=== PATIENT | female | born 1945 | race Caucasian/White ===

== ENCOUNTER 2017-07-24 20:29 | Inpatient (IN) | payer MEDICARE, BC ==
[~2017-07-24] VITALS: Ht 162.6 cm; Wt 70.0 kg
[~2017-07-24 20:29] MED LIST: ALL220TA PO; CEFP250S PO; METO25 PO; OXYC1SOL6 PO; [UNRECOGNIZED DRUG - CODE] IM
[2017-07-24 20:44] VITALS: BP 175/93; PULSE 70; RESP 18; TEMP 98.1; O2SAT 98
[2017-07-24 20:48] VITALS: O2SAT 99
[2017-07-24] MEDS ORDERED: VITA100021 SL (20:50)
[2017-07-24] MEDS ORDERED: REBI44IN SQ (20:50)
[2017-07-24] MEDS ORDERED: ASPI81CH6 CHEW (20:50)
--- NOTE | 2017-07-24 21:33 | RADRPT ---
EXAM DATE/TIME: 07/24/2017 20:51 [facility] COMPARISON: No previous studies available for comparison. INDICATIONS : Syncope. MEDICAL HISTORY : None. SURGICAL HISTORY : None. ENCOUNTER: Initial ACUITY: 1 day PAIN SCORE: 0/10 LOCATION: Bilateral chest FINDINGS: The heart size is normal. There is minimal linear density at the lateral left base likely related to minimal atelectasis or scarring. Otherwise, the lungs are clear. No effusion is seen. CONCLUSION: Suspected minimal linear scarring or atelectasis at the left base. José Wright MD on July 24, 2017 at 21:30 Board Certified Radiologist. This report was verified electronically.
[2017-07-24 21:56] LABS: BASOPHIL # 0.2 TH/MM3 (0-0.2); BASOPHIL % 1.1 % (0.0-2.0); EOSINOPHIL % 0.2 % (0.0-4.0); HEMATOCRIT 42.9 % (35.0-46.0); HEMOGLOBIN 14.7 GM/DL (11.6-15.3); MEAN CELL VOLUME 89.9 FL (80.0-100.0); MEAN CORPUSCULAR HEMOGLOBIN 30.8 PG (27.0-34.0); MEAN CORPUSCULAR HGB CONC 34.3 % (32.0-36.0); MEAN PLATELET VOLUME 9.5 FL (7.0-11.0); MONO % 4.4 % (0.0-8.0); MONOCYTE # 0.6 TH/MM3 (0-0.9); NEUT % 65.3 % (16.0-70.0); PLATELET COUNT 401 TH/MM3 (150-450); RED BLOOD COUNT 4.78 MIL/MM3 (4.00-5.30); WHITE BLOOD COUNT 13.8 TH/MM3 (4.0-11.0)
[2017-07-24 22:24] LABS: AMORPHOUS SEDIMENT, URINE RARE; BACTERIA, URINE MANY /hpf; BILIRUBIN, URINE NEG (NEG); BLOOD, URINE NEG (NEG); GLUCOSE,URINE NEG (NEG); KETONE, URINE NEG (NEG); MUCUS URINE FEW /lpf (OCC); NITRITE,URINE POS (NEG); PH, URINE 5.5 (5.0-8.5); SQUAMOUS EPITHELIAL CELL URINE 3 /hpf (0-5); URINE COLOR YELLOW (YELLW/STRAW); URINE LEUKOCYTE ESTERASE MOD (NEG)
[2017-07-24 22:32] LABS: BICARBONATE 23.2 MEQ/L (21.0-32.0); CALCIUM 8.8 MG/DL (8.5-10.1); CREATININE 0.95 MG/DL (0.50-1.00)
[2017-07-24 22:33] LABS: TROPONIN I 0.07 NG/ML (0.02-0.05)
[2017-07-24 22:35] LABS: INTERNATIONAL NORMALIZED RATIO 0.9 RATIO; PROTHROMBIN TIME - PATIENT 9.5 SEC (9.8-11.6)
[2017-07-24 22:40] VITALS: BP 221/110
[2017-07-24] MEDS ORDERED: METOPROLOL TARTRATE 25 MG TAB PO ONE (22:45)
[2017-07-24] MEDS ORDERED: NITROGLYCERIN 2% OINT 1 GM PACKET TOPICAL ONE (22:45)
[2017-07-24] MEDS ORDERED: METOPROLOL TARTRATE 5 MG/5 ML VIAL IV PUSH ONE (22:45)
[2017-07-24] MEDS ORDERED: cefTRIAXone INJ 1,000 MG in SODIUM CHLORIDE 0.9% INJ 100 ML IV ONE (22:45)
[2017-07-24] MEDS ORDERED: ASPIRIN 81 MG CHEW TAB CHEW ONE (22:45)
[2017-07-24] MEDS ORDERED: ENOXAPARIN SODIUM 60 MG/0.6 ML SYRINGE SQ ONE (23:00)
--- NOTE | 2017-07-24 23:10 | PD ---
HPI Chief Complaint: Syncope/Near-Syncope Time Seen by Provider: 20:42 Travel History International Travel<30 days: No Contact w/Intl Traveler<30days: No Traveled to known affect area: No History of Present Illness HPI Patient is a 71-year-old female with multiple sclerosis she says that she was at a bili are all sitting outside in the sun when she passed out. She did not fall because she was sitting down. She did not hit her head she is unaware of why she was here she says. People at the pool hard[place] called the paramedics and she is transported by EMS in the ER she has no complaints afebrile nontoxic- appearing labs are sent she says she is supposed to be on anti-hypertensive medication but she does not notice and she doesn't take it anyway she is hypertensive in the ER EKG troponin sent urine is sent labs are sent to rule out organic causes of her syncopal episode. Possibly was a vasovagal from heat otherwise it could've been infectious or cardiac or neurologic . she his not seen another doctor for this and she denies any pain in her body PFSH Past Medical History Cancer: No Diabetes: No Glaucoma: No Hepatitis: No Hiatal Hernia: No Hypertension: Yes Medical other: Yes (MS) Thyroid Disease: No Tetanus Vaccination: Unknown Influenza Vaccination: No : 2 Para: 2 Past Surgical History Abdominal Surgery: No Cardiac Surgery: No Ear Surgery: No Endocrine Surgery: No Eye Surgery: No Genitourinary Surgery: No Gynecologic Surgery: Yes (HYSTERECTOMY) Hysterectomy: Yes Oral Surgery: No Pacemaker: No Thoracic Surgery: No Other Surgery: Yes Social History Alcohol Use: No Tobacco Use: Yes (1 PPD X 40 YEARS) Substance Use: No Allergies-Medications (Allergen,Severity, Reaction): Coded Allergies: No Known Allergies (Verified Allergy, Unknown, 07/25/17) Reported Meds & Prescriptions Reported Meds & Active Scripts Active Reported Vitamin B-12 (Cyanocobalamin) 1,000 Mcg Subl 1,000 Mcg SL DAILY Aspirin Low Dose (Aspirin) 81 Mg Chew 81 Mg CHEW DAILY Rebif Inj (Interferon Beta 1a) 44 Mcg/0.5 Ml Syr 44 Mcg SQ Review of Systems Except as stated in HPI: all other systems reviewed are Neg Physical Exam Narrative GENERAL: Nontoxic-appearing awake alert nondiaphoretic SKIN: Warm and dry. Not diaphoretic HEAD: Atraumatic. Normocephalic. EYES: Pupils equal and round. No scleral icterus. No injection or drainage. ENT: No nasal bleeding or discharge. Mucous membranes pink and moist. NECK: Trachea midline. No JVD. CARDIOVASCULAR: Regular rate and rhythm. RESPIRATORY: No accessory muscle use. Clear to auscultation. Breath sounds equal bilaterally. GASTROINTESTINAL: Abdomen soft, non-tender, nondistended. Hepatic and splenic margins not palpable. MUSCULOSKELETAL: Extremities without clubbing, cyanosis, or edema. No obvious deformities. NEUROLOGICAL: Awake and alert. No obvious cranial nerve deficits. Motor grossly within normal limits. PSYCHIATRIC: Appropriate mood and affect; insight and judgment normal. Data Data Last Documented VS Vital Signs Date Time Temp Pulse Resp B/P (MAP) Pulse Ox O2 Delivery O2 Flow Rate FiO2 07/24/17 22:40 221/110 (147) 07/24/17 20:48 99 Room Air 07/24/17 20:44 98.1 70 18 Orders Orders Electrocardiogram (07/24/17 20:45) Complete Blood Count With Diff (07/24/17 20:45) Basic Metabolic Panel (Bmp) (07/24/17 20:45) Ckmb (Isoenzyme) Profile (07/24/17 20:45) Troponin I (07/24/17 20:45) Chest, Single Ap (07/24/17 20:45) Iv Access Insert/Monitor (07/24/17 20:45) Ecg Monitoring (07/24/17 20:45) Oxygen Administration (07/24/17 20:45) Oximetry (07/24/17 20:45) Urinalysis - C+S If Indicated (07/24/17 20:45) Coag Profile (07/24/17 20:54) Urine Culture (07/24/17 21:35) Ceftriaxone Inj (Rocephin Inj) (07/24/17 22:45) Nitroglycerin 2% Oint (Nitroglycerin 2% (07/24/17 22:45) Aspirin Chew (Aspirin Chew) (07/24/17 22:45) Metoprolol Tartrate Inj (Lopressor Inj) (07/24/17 22:45) Metoprolol Tartrate (Lopressor) (07/24/17 22:45) Enoxaparin Inj (Lovenox Inj) (07/24/17 23:00) Admit Order (Ed Use Only) (07/24/17 23:16) Labs Laboratory Tests Test 07/24/17 20:45 07/24/17 21:03 07/24/17 21:30 07/24/17 21:35 Blood Urea Nitrogen 20 MG/DL Creatinine 0.95 MG/DL Random Glucose 87 MG/DL Calcium Level 8.8 MG/DL Sodium Level 139 MEQ/L Potassium Level 3.9 MEQ/L Chloride Level 108 MEQ/L Carbon Dioxide Level 23.2 MEQ/L Anion Gap 8 MEQ/L Estimat Glomerular Filtration Rate 58 ML/MIN Total Creatine Kinase 72 U/L Troponin I 0.07 NG/ML White Blood Count 13.8 TH/MM3 Red Blood Count 4.78 MIL/MM3 Hemoglobin 14.7 GM/DL Hematocrit 42.9 % Mean Corpuscular Volume 89.9 FL Mean Corpuscular Hemoglobin 30.8 PG Mean Corpuscular Hemoglobin Concent 34.3 % Red Cell Distribution Width 14.0 % Platelet Count 401 TH/MM3 Mean Platelet Volume 9.5 FL Neutrophils (%) (Auto) 65.3 % Lymphocytes (%) (Auto) 29.0 % Monocytes (%) (Auto) 4.4 % Eosinophils (%) (Auto) 0.2 % Basophils (%) (Auto) 1.1 % Neutrophils # (Auto) 9.0 TH/MM3 Lymphocytes # (Auto) 4.0 TH/MM3 Monocytes # (Auto) 0.6 TH/MM3 Eosinophils # (Auto) 0.0 TH/MM3 Basophils # (Auto) 0.2 TH/MM3 CBC Comment DIFF FINAL Differential Comment Prothrombin Time 9.5 SEC Prothromb Time International Ratio 0.9 RATIO Activated Partial Thromboplast Time 21.5 SEC Urine Color YELLOW Urine Turbidity HAZY Urine pH 5.5 Urine Specific [place] 1.017 Urine Protein TRACE mg/dL Urine Glucose (UA) NEG mg/dL Urine Ketones NEG mg/dL Urine Occult Blood NEG Urine Nitrite POS Urine Bilirubin NEG Urine Urobilinogen LESS THAN 2.0 MG/DL Urine Leukocyte Esterase MOD Urine RBC 2 /hpf Urine WBC 24 /hpf Urine Squamous Epithelial Cells 3 /hpf Urine Amorphous Sediment RARE Urine Bacteria MANY /hpf Urine Mucus FEW /lpf Microscopic Urinalysis Comment CULTURE INDICATED MDM Medical Decision Making Medical Screen Exam Complete: Yes Emergency Medical Condition: Yes Differential Diagnosis Syncope of heat exhaustion syncope and vasovagal syncope of UTI urosepsis syncope cardiogenic syncope neurologic other Narrative Course Patient has a UTI that could have caused her to have the vasovagal syncope she also has a troponin elevated at 0.07 possibly she had a ischemic cardiac event causing syncope patient will be admitted and treated for possible cardiac ischemia with serial troponins UTI will be covered with ceftriaxone I give 1 g IV in the ER and admit her to medical service Diagnosis Primary Impression: UTI (urinary tract infection) Qualified Codes: N30.00 - Acute cystitis without hematuria Additional Impressions: Elevated troponin Syncope Qualified Codes: R55 - Syncope and collapse Admitting Information Admitting Physician Requests: Admit Gene Perry MD Jul 24, 2017 23:10
[2017-07-24 23:36] VITALS: BP 189/97; PULSE 67; RESP 18; O2SAT 100
[2017-07-25] VITALS (9 sets, daily range): BP systolic 134–193; BP diastolic 61–94; PULSE 53–69; RESP 16–18; TEMP 97.8–98.3; O2SAT 95–99
[2017-07-25] MEDS ORDERED: SODIUM CHLOR 0.9% 1000 ML INJ 1,000 ML IV SCH (00:56)
[2017-07-25] MEDS ORDERED: NALOXONE HCL 0.4 MG/ML AMP IV PUSH PRN (01:00)
[2017-07-25] MEDS ORDERED: BISACODYL 10 MG SUPP RECTAL PRN (01:00)
[2017-07-25] MEDS ORDERED: SENNOSIDES 8.6 MG TAB PO PRN (01:00)
[2017-07-25] MEDS ORDERED: LACTULOSE SYRUP 20 GM/30 ML CUP PO PRN (01:00)
[2017-07-25] MEDS ORDERED: MAGNESIUM HYDROXIDE SUSP 30 ML CUP PO PRN (01:00)
[2017-07-25] MEDS ORDERED: ACETAMINOPHEN 325 MG TAB PO PRN (01:00)
[2017-07-25] MEDS ORDERED: SODIUM CHLORIDE 0.9% FLUSH 10 ML FLUSH IV FLUSH PRN (01:00)
[2017-07-25] MEDS ORDERED: ONDANSETRON HCL 4 MG/2 ML VIAL IVP PRN (01:00)
--- NOTE | 2017-07-25 01:17 | HHI.HP ---
HPI Service [facility] Primary Care Physician Rob Espinosa, DO Admission Diagnosis ischemia cardiac Diagnoses: Chief Complaint: Syncope Travel History International Travel<30 Days: No Contact w/Intl Traveler <30 Da: No History of Present Illness 71-year-old female with a history of hypertension , heart murmur as a child, and MS presented to the ED after having a syncopal episode. Patient states she was out of the words room playing cards when she walked outside to talk and have a cigarette and she had a syncopal episode. She states prior to the syncopal episode she denies any chest pain or shortness of breath, she is unsure why she had a loss of consciousness. She denies any change in medications, eating habits and states she felt pretty dehydrated. Upon examination she does not have any complaints, no chest pain or shortness of breath no fevers or chills. She was told she hit her head but she denies any headaches, double vision or blurry vision. She was found to have a UTI but states she is incontinent due to the MS, denies any dysuria. She states she does not follow up with a landman for her heart murmur she has not seen one in many years. Discussed possible cardiac catheter with patient and she is not sure whether she would proceed with one at this time. She does agree to talk with a landman. Review of Systems Except as stated in HPI: all other systems reviewed are Neg Past Family Social History Past Medical History MS Hypertension Heart murmur since a child Past Surgical History Hysterectomy Right tonsillectomy Reported Medications Reported Meds & Active Scripts Active Reported Vitamin B-12 (Cyanocobalamin) 1,000 Mcg Subl 1,000 Mcg SL DAILY Aspirin Low Dose (Aspirin) 81 Mg Chew 81 Mg CHEW DAILY Rebif Inj (Interferon Beta 1a) 44 Mcg/0.5 Ml Syr 44 Mcg SQ Allergies: Coded Allergies: No Known Allergies (Verified Allergy, Unknown, 07/25/17) Family History Dad: Colon cancer Mom: Heart disease, pacemaker Sister: Breast cancer, another sister pancreatic cancer Social History Tobacco use: 1 PPD Alcohol use: Denies Physical Exam Vital Signs Vital Signs Date Time Temp Pulse Resp B/P (MAP) Pulse Ox O2 Delivery O2 Flow Rate FiO2 07/24/17 23:36 67 18 189/97 (127) 100 Room Air 07/24/17 22:40 221/110 (147) 07/24/17 20:48 99 Room Air 07/24/17 20:48 99 Room Air 07/24/17 20:44 98.1 70 18 175/93 (120) 98 Room Air Physical Exam GENERAL: This is a well-nourished, well-developed patient, in no apparent distress. SKIN: No rashes, ecchymoses or lesions. Cool and dry. HEAD: Atraumatic. Normocephalic. EYES: Pupils equal round and reactive. Extraocular motions intact ENT: Nose without bleeding, purulent drainage or septal hematoma.Airway patent. NECK: Trachea midline. No JVD or lymphadenopathy. CARDIOVASCULAR: Regular rate and rhythm without murmurs, gallops, or rubs. RESPIRATORY: Clear to auscultation. Breath sounds equal bilaterally. No wheezes , rales, or rhonchi. GASTROINTESTINAL: Abdomen soft, non-tender, nondistended. MUSCULOSKELETAL: Extremities without clubbing, cyanosis, or edema. NEUROLOGICAL: Awake and alert. Motor and sensory grossly within normal limits. Five out of 5 muscle strength in all muscle groups. Normal speech. Laboratory Laboratory Tests Test 07/24/17 20:45 07/24/17 21:03 07/24/17 21:30 07/24/17 21:35 Blood Urea Nitrogen 20 Creatinine 0.95 Random Glucose 87 Calcium Level 8.8 Sodium Level 139 Potassium Level 3.9 Chloride Level 108 Carbon Dioxide Level 23.2 Anion Gap 8 Estimat Glomerular Filtration Rate 58 Total Creatine Kinase 72 Troponin I 0.07 White Blood Count 13.8 Red Blood Count 4.78 Hemoglobin 14.7 Hematocrit 42.9 Mean Corpuscular Volume 89.9 Mean Corpuscular Hemoglobin 30.8 Mean Corpuscular Hemoglobin Concent 34.3 Red Cell Distribution Width 14.0 Platelet Count 401 Mean Platelet Volume 9.5 Neutrophils (%) (Auto) 65.3 Lymphocytes (%) (Auto) 29.0 Monocytes (%) (Auto) 4.4 Eosinophils (%) (Auto) 0.2 Basophils (%) (Auto) 1.1 Neutrophils # (Auto) 9.0 Lymphocytes # (Auto) 4.0 Monocytes # (Auto) 0.6 Eosinophils # (Auto) 0.0 Basophils # (Auto) 0.2 CBC Comment DIFF FINAL Differential Comment Prothrombin Time 9.5 Prothromb Time International Ratio 0.9 Activated Partial Thromboplast Time 21.5 Urine Color YELLOW Urine Turbidity HAZY Urine pH 5.5 Urine Specific [place] 1.017 Urine Protein TRACE Urine Glucose (UA) NEG Urine Ketones NEG Urine Occult Blood NEG Urine Nitrite POS Urine Bilirubin NEG Urine Urobilinogen LESS THAN 2.0 Urine Leukocyte Esterase MOD Urine RBC 2 Urine WBC 24 Urine Squamous Epithelial Cells 3 Urine Amorphous Sediment RARE Urine Bacteria MANY Urine Mucus FEW Microscopic Urinalysis Comment CULTURE INDICATED Test 07/24/17 23:30 Troponin I 0.05 Date/Time Source Procedure Growth Status 07/24/17 21:35 Urine Clean Catch Urine Culture Pending Received Result Diagram: 07/24/[id number]/24/172044 Imaging Last Impressions Chest X-Ray 07/24/172044 Signed Impressions: Service Date/Time: Monday, July 24, 2017 20:51 - CONCLUSION: Suspected minimal linear scarring or atelectasis at the left base. José Wright MD [place] VTE Risk Assessment Caprini VTE Risk Assessment: No/Low Risk (score <= 1) Caprini Risk Assessment Model Point Value = 1 Point Value = 2 Point Value = 3 Point Value = 5 Age 41-60 Minor surgery BMI > 25 kg/m2 Swollen legs Varicose veins or History of unexplained or recurrent spontaneous Oral contraceptives or hormone replacement Sepsis (< 1 month) Serious lung disease, including pneumonia (< 1 month) Abnormal pulmonary function Acute myocardial infarction Congestive heart failure (< 1 month) History of inflammatory bowel disease Medical patient at bed rest Age 61-74 Arthroscopic surgery Major open surgery (> 45 min) Laparoscopic surgery (> 45 min) Malignancy Confined to bed (> 72 hours) Immobilizing plaster cast Central venous access Age >= 75 History of VTE Family history of VTE Factor V Leiden Prothrombin [id number] Lupus anticoagulant Anticardiolipin antibodies Elevated serum homocysteine Heparin-induced thrombocytopenia Other congenital or acquired thrombophilia Stroke (< 1 month) Elective arthroplasty Hip, pelvis, or leg fracture Acute spinal cord injury (< 1 month) Prophylaxis Regimen Total Risk Factor Score Risk Level Prophylaxis Regimen 0-1 Low Early ambulation 2 Moderate Order ONE of the following: *Sequential Compression Device (SCD) *Heparin 5000 units SQ BID 3-4 Higher Order ONE of the following medications: *Heparin 5000 units SQ TID *Enoxaparin/Lovenox 40 mg SQ daily (WT < 150 kg, CrCl > 30 mL/min) *Enoxaparin/Lovenox 30 mg SQ daily (WT < 150 kg, CrCl > 10-29 mL/min) *Enoxaparin/Lovenox 30 mg SQ BID (WT < 150 kg, CrCl > 30 mL/min) AND/OR *Sequential Compression Device (SCD) 5 or more Highest Order ONE of the following medications: *Heparin 5000 units SQ TID (Preferred with Epidurals) *Enoxaparin/Lovenox 40 mg SQ daily (WT < 150 kg, CrCl > 30 mL/min) *Enoxaparin/Lovenox 30 mg SQ daily (WT < 150 kg, CrCl > 10-29 mL/min) *Enoxaparin/Lovenox 30 mg SQ BID (WT < 150 kg, CrCl > 30 mL/min) AND *Sequential Compression Device (SCD) Assessment and Plan Problem List: (1) Syncope ICD Code: R55 - Syncope and collapse (2) Elevated troponin ICD Code: R74.8 - Abnormal levels of other serum enzymes (3) UTI (urinary tract infection) ICD Code: N39.0 - Urinary tract infection, site not specified Assessment and Plan 71-year-old female with a history of hypertension , heart murmur as a child, and MS presented to the ED after having a syncopal episode. Syncope, acute -2-D echo, ultrasound carotids ordered -Consult neurology for recommendations -Orthostatic BP ordered Elevated troponin, rule out ACS Troponin 0.07 -Serial troponin and EKGs -Consult cardiology for recommendations -Patient was given therapeutic Lovenox, will consider heparin drip 12 hours post Lovenox dose if patient develops chest pain or a rise in cardiac enzymes -Nitroglycerin when necessary UTI, suspect Escherichia coli UA shows a moderate leukocyte esterase with nitrates and bacteria -Rocephin IV daily -Urine culture pending Hypertension, chronic, currently elevated -Awaiting update for home medications -Vasotec when necessary -Monitor vitals Tobacco abuse, chronic -Encouraged to quit DVT prophylaxis: SCDs, Lovenox Discussed Condition With Patient , RN and ED physician Physician Certification 2 Midnight Certification Type: Admission for Inpatient Services Order for Inpatient Services The services are ordered in accordance with Medicare regulations or non- Medicare payer requirements, as applicable. In the case of services not specified as inpatient-only, they are appropriately provided as inpatient services in accordance with the 2-midnight benchmark. Estimated LOS (days): 2 days is the estimated time the patient will need to remain in the hospital, assuming treatment plan goals are met and no additional complications. Post-Hospital Plan: Home Raisa Salinas Jul 25, 2017 01:17
[2017-07-25] MEDS: ENALAPRILAT 1.25 MG/ML VIAL IV PUSH PRN ×2 (01:35→17:58)
[2017-07-25] MEDS ORDERED: [UNRECOGNIZED DRUG - OTHER] (05:17)
[2017-07-25] MEDS ORDERED: DOCUSATE SODIUM 50 MG/SENNA 8.6 MG TAB PO SCH (09:00)
[2017-07-25] MEDS ORDERED: ASPIRIN 81 MG CHEW TAB CHEW SCH (09:00)
[2017-07-25] MEDS ORDERED: CYANOCOBALAMIN 1,000 MCG TAB PO SCH (09:00)
[2017-07-25] MEDS ORDERED: SODIUM CHLORIDE 0.9% FLUSH 10 ML FLUSH IV FLUSH SCH (09:00)
--- NOTE | 2017-07-25 10:10 | MB ---
cc: Johann Knight MD DATE: 07/25/2017 HISTORY OF PRESENT ILLNESS: A 71-year-old right-handed woman with a history of hypertension, MS from optic neuritis, sees Dr. Gonzales, on Rebif, been stable without MS symptoms recently. She tells me she has passed out about 20 times over the course of her life, never sitting down before. Oftentimes if she gets nervous about something she might pass out like before she might get her tooth pulled, sometimes after if she gets blood drawn. Yesterday, she was sitting on the sidewalk outside a pool hardin where she had been playing cards. She is not a drinker. She does smoke. Without warning, she passed out, she thinks for about 10 minutes. No chest pain, palpitations or headache with that, no warning, no incontinence or tongue biting. She was not confused when she woke up. REVIEW OF SYSTEMS: She denies any history of diabetes, hypercholesterolemia, PR, CABG, stent, angioplasty, atrial fibrillation, Coumadin, chest pain, palpitations, renal, hepatic or pulmonary disease, thyroid disease, lupus, ulcer, cancer, seizure, stroke. SOCIAL HISTORY: She is a smoker, not a drinker. No drugs. Lives by herself. FAMILY HISTORY: Positive for cancer. Negative for seizure, stroke. ALLERGIES: NO KNOWN DRUG ALLERGIES. MEDICATIONS: She takes vitamin B12, aspirin 81, Rebif 44 mcg subQ. PHYSICAL EXAMINATION: VITAL SIGNS: Afebrile, 61, 17. She was in sinus rhythm. Highest blood pressure initially 221/110, it has come down to 168/79. NECK: There were no carotid bruits. HEART: Regular rhythm. I do not detect a murmur. NEURO: Pupils are equal. Visual cruz are full. Extraocular movements intact without nystagmus. Face is symmetric with normal sensation. Tongue was midline. There is no drift. Normal strength in upper and lower extremities bilaterally. DTRs were 2+ and symmetric throughout, except left knee jerk might be slightly hyperreflexive compared to the right. Toes are downgoing bilaterally. No ankle clonus. Pinprick is intact throughout. Speech is fluent. She is not aphasic. No apparent distress. Gives a good history. LABORATORY DATA: CBC shows a white count of 13.8. She had an LP back in 2005, which did show some oligoclonal bands, otherwise normal. CSF otherwise normal. VDRL negative. Basic metabolic profile, calcium, CPK normal. Troponin 0.07. Bilirubin normal. Coags normal. UA showed 24 white cells, moderate leukocyte esterase. She had a chest x-ray which showed some atelectasis on the left. ASSESSMENT AND PLAN: 1. Syncopal episode. It does not sound really neurological. I am going to have her see cardiology. We will check an MRI of the brain, carotid ultrasound, echo, Holter, some standing blood pressure, though she was sitting at the time. Check an EEG. The MS seems to be doing well. Check some additional blood work. She has actually had many syncopal spells over the course of her life. At this point, she should hold off driving until further notice. Also, check a standing blood pressure on her. Of interest, her blood pressure was very high when she came in. I think a seizure or stroke is probably unlikely. We will also check an MRA to make sure there is no vertebrobasilar stenosis. ____ she could have a neurocardiogenic syncope is possible. Johann Knight MD DJM/TL/ , 09:17 AM , 09:51 AM
[2017-07-25] MEDS ORDERED: ENOXAPARIN SODIUM 60 MG/0.6 ML SYRINGE SQ SCH (11:00)
--- NOTE | 2017-07-25 11:13 | RADRPT ---
EXAM DATE/TIME: 07/25/2017 09:55 [facility] COMPARISON: No previous studies available for comparison. INDICATIONS : Syncope. MEDICAL HISTORY : Dizziness. Syncope. Depression. Irregular heartbeat. SURGICAL HISTORY : Tonsillectomy. Hysterectomy. ENCOUNTER: Initial ACUITY: 1 day PAIN SCORE: 1/10 LOCATION: Bilateral neck PEAK SYSTOLIC VELOCITIES (cm/sec): ICA/CCA RATIO: Right: 1.6 Left: 1.2 ICA: Right: 107 Left: 105 CCA: Right: 65 Left: 91 ECA: Right: 83 Left: 128 VERTEBRAL: Right: 27 retrograde Left: 43 antegrade Elevated flow velocities and ICA/CCA ratios have been found to correlate with increased degrees of vessel stenosis, calculated as percentage of diameter relative to a normal segment of distal ICA/CCA FINDINGS: RIGHT CAROTID: Mild plaquing at the carotid bifurcation. No significant stenosis is visualized. The waveforms are w ithin normal limits. LEFT CAROTID: Mild plaquing at the carotid bifurcation. No significant stenosis is visualized. The waveforms are w ithin normal limits. VERTEBRAL ARTERIES: Retrograde flow in the right vertebral artery. Antegrade flow in the left vertebral artery. MISCELLANEOUS: None. CONCLUSION: 1. Mild atherosclerotic plaquing bilaterally. 2. No focal high grade or hemodynamically significant stenosis. 3. Retrograde flow in the right portable artery. Tj Husain MD on July 25, 2017 at 11:09 Board Certified Radiologist. This report was verified electronically.
--- NOTE | 2017-07-25 11:52 | HHI.PR ---
Addendum to Inpatient Note Addendum Reason: Additional Documentation Additional Information Patient was seen today, appears to be fully oriented and asymptomatic. Denies any chest pain shortness of breath. Denies any headache nausea or vomiting. Is very hungry. Denies having any lightheadedness going to the restroom. As IV fluids running. Says she only drinks about a cup of water a day at most. Really wants to go home. I explained to her that there was a few more tests ordered and that she can speak to the door closer and the neurologist to see if they were fine with her going home. I suspect she had overall syncope secondary to dehydration. May be a reasonable candidate to go home with a Holter monitor today. Addendum: Discussed case with both neurology and cardiology. Per neurology patient can go home once evaluated by cardiology and cleared with time. Discussed results with cardiology including unremarkable carotid ultrasounds and MRI and MRA. Cardiology will perform outpatient stress test in 3 days, clear for discharge from their standpoint. EEG results can be followed up as an outpatient. Patient was instructed to not drive or operate any heavy machinery until cleared by neurology as an outpatient. Mo Zamarripa MD Jul 25, 2017 11:52
[2017-07-25 12:21] LABS: AUTOMATED NEUTROPHIL # 5.8 TH/MM3 (1.8-7.7); BASOPHIL # 0.1 TH/MM3 (0-0.2); BASOPHIL % 0.7 % (0.0-2.0); EOSINOPHIL # 0.1 TH/MM3 (0-0.4); EOSINOPHIL % 0.7 % (0.0-4.0); HEMOGLOBIN 12.7 GM/DL (11.6-15.3); LYMPH % 40.3 % (9.0-44.0); LYMPHOCYTE # 4.6 TH/MM3 (1.0-4.8); MEAN CELL VOLUME 90.1 FL (80.0-100.0); MEAN CORPUSCULAR HEMOGLOBIN 30.2 PG (27.0-34.0); MEAN CORPUSCULAR HGB CONC 33.5 % (32.0-36.0); MONOCYTE # 0.8 TH/MM3 (0-0.9); NEUT % 51.3 % (16.0-70.0); PLATELET COUNT 373 TH/MM3 (150-450); RED BLOOD COUNT 4.22 MIL/MM3 (4.00-5.30); RED CELL DISTRIBUTION WIDTH 13.9 % (11.6-17.2); WHITE BLOOD COUNT 11.3 TH/MM3 (4.0-11.0)
[2017-07-25 12:45] LABS: AST (GOT) 9 U/L (15-37); C-REACTIVE PROTEIN 1.07 MG/DL (0.00-0.30)
[2017-07-25 13:10] LABS: ALT (GPT) 12 U/L (10-53); FREE T4 1.14 NG/DL (0.76-1.46)
--- NOTE | 2017-07-25 13:57 | RADRPT ---
EXAM DATE/TIME: 07/25/2017 12:15 [facility] COMPARISON: No previous studies available for comparison. INDICATIONS : CVA. Syncope. CONTRAST: 20 cc Omniscan (gadodiamide) IV MEDICAL HISTORY : Hypertension. Multiple sclerosis. SURGICAL HISTORY : Hysterectomy. Tonsillectomy. ENCOUNTER: Initial ACUITY: 1 day PAIN SCORE: 0/10 LOCATION: head. TECHNIQUE: Multiplanar, multisequence MRI of the brain was performed both prior to and following the administrat ion of paramagnetic contrast. FINDINGS: CEREBRUM: The ventricles are normal for age. There is bilateral cortical atrophy. No evidence of midline shift , mass lesion, hemorrhage or acute infarction. No extraaxial fluid collections are seen. The pituit martha gland and suprasellar cistern are normal in configuration. WHITE MATTER: White matter changes bilaterally characteristic of ischemic demyelinization. POSTERIOR FOSSA: The cerebellum and brainstem are intact. 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 The 4th ventricle is midline. The cerebellopontine angle is unremarkable. The cerebellar tonsils are normal in position. DIFFUSION IMAGING: No focal areas of restricted diffusion are seen. No evidence of acute infarction. EXTRACRANIAL: The visualized portions of the orbits and paranasal sinuses are unremarkable. POST-CONTRAST: No abnormal areas of parenchymal or dural enhancement. No evidence of blood-brain barrier breakdown. CONCLUSION: 1. Bilateral cortical atrophy and chronic white matter changes. 2. No acute intracranial pathology. Tj Husain MD on July 25, 2017 at 13:54 Board Certified Radiologist. This report was verified electronically.
--- NOTE | 2017-07-25 14:00 | RADRPT ---
EXAM DATE/TIME: 07/25/2017 12:15 [facility] COMPARISON: MRI BRAIN W & W/O CONTRAST, July 25, 2017, 12:15. INDICATIONS : Stroke. Syncope. MEDICAL HISTORY : Multiple sclerosis. Hypertension. SURGICAL HISTORY : Hysterectomy. Tonsillectomy. ENCOUNTER: Initial ACUITY: 1 day PAIN SCORE: 0/10 LOCATION: cranial Please note a normal MRA of the brain does not entirely exclude the possibility of a small aneurysm, nor the possibility of distal intracranial vessel disease. TECHNIQUE: 3D time of flight MRA was performed. Source images, multiplanar STS MIP, and 3D volume MIP reconstru ctions were reviewed. FINDINGS: There is excellent visualization of the major intracranial arteries out to the second-order branch ve ssels. The anterior circulation is unremarkable. Luminal surfaces are smooth. There is no evidence of signif icant stenosis. There is no evidence of aneurysm, vascular malformation or vascular displacement. origin of the posterior cerebral arteries are noted. The as the artery is small. Left vertebral artery is dominant. There are no significant stenotic or occlusive changes. CONCLUSION: 1. 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 No evidence of vasculopathy, stenosis, aneurysm or vascular malformation. 3. Dominant left vertebral artery. Donal Huerta MD on July 25, 2017 at 13:55 Board Certified Radiologist. This report was verified electronically.
--- NOTE | 2017-07-25 14:01 | RADRPT ---
EXAM DATE/TIME: 07/25/2017 12:15 [facility] COMPARISON: No previous studies available for comparison. INDICATIONS : Stroke. Syncope. CONTRAST: 20 cc Omniscan (gadodiamide) IV MEDICAL HISTORY : Hypertension. Multiple sclerosis. SURGICAL HISTORY : Tonsillectomy. Hysterectomy. ENCOUNTER: Initial ACUITY: 1 day PAIN SCORE: 0/10 LOCATION: Head. Percent stenosis is calculated using the diameter of the stenotic region over the diameter of the nor mal distal internal carotid artery. TECHNIQUE: Bolus infused MRA of the extracranial circulation was performed using a neurovascular coil. Post pro cessing was performed including rotating subvolume maximum intensity projections of each carotid macey ry, rotating full volume maximum intensity projections of both carotid arteries, sagittal and coronal sliding thin slab reformations of each carotid artery, and left oblique sliding thin slab reformatio n through the aortic arch to include the origin of the arch branch vessels. FINDINGS: AORTIC ARCH: There is a three vessel origin of the great vessels from the aorta. No evidence of ostial narrowing. RIGHT CAROTID: The common carotid artery is intact. The carotid bulb has a normal configuration without ulceration or narrowing. The internal carotid artery lumen is smooth without stenosis. The external carotid ar debbi is intact. LEFT CAROTID: The common carotid artery is intact. The carotid bulb has a normal configuration without ulceration or narrowing. The internal carotid artery lumen is smooth without stenosis. The external carotid ar debbi is intact. VERTEBRALS: The vertebral arteries are asymmetric in size with the left vertebral artery being dominant.. No christie notic lesions are seen. CONCLUSION: 1. No evidence of hemodynamically significant stenosis or significant atherosclerotic vascular diseas e. 2. Dominant left vertebral artery. Donal Huerta MD on July 25, 2017 at 13:58 Board Certified Radiologist. This report was verified electronically.
--- NOTE | 2017-07-25 14:09 | ECHRPT ---
Indication: syncope CONCLUSIONS Normal left ventricular size and wall thickness. The left ventricular systolic function is normal wi th an estimated ejection fraction in the range of 60-65%. Normal wall motion. Trace mitral valve regurgitation. There is mild tricuspid valve regurgitation with normal pulmonary pressures. BP: / HR: Rhythm: Technical Quality: FINDINGS LEFT VENTRICLE Normal left ventricular size and wall thickness. The left ventricular systolic function is normal wi th an estimated ejection fraction in the range of 60-65%. Normal wall motion. RIGHT VENTRICLE Normal right ventricular size and systolic function. LEFT ATRIUM The left atrial size is normal. RIGHT ATRIUM The right atrial size is normal. ATRIAL SEPTUM Normal atrial septal thickness without atrial level shunting by limited color doppler interrogation. AORTA The aortic root and proximal ascending aorta are normal in size on limited imaging. MITRAL VALVE Trace mitral valve regurgitation. AORTIC VALVE Trileaflet aortic valve. No aortic valve stenosis or regurgitation. TRICUSPID VALVE There is mild tricuspid valve regurgitation with normal pulmonary pressures. PULMONARY VALVE The pulmonary valve is not well visualized. VESSELS The inferior vena cava is normal in size. PERICARDIUM No pericardial effusion. Sotero Nelson MD (Electronically Signed) Final Date:25 July 2017 14:08
[2017-07-25] MEDS ORDERED: GADODIAMIDE PF 287 MG/ML 20 ML VIAL (for RAD MRI) IVCONTRAST ONE (14:17)
--- NOTE | 2017-07-25 14:44 | EKG ---
Date Performed: 07/24/2017 Time Performed: 20:42:27 PTAGE: 71 years EKG: Sinus rhythm POSSIBLE LEFT ATRIAL ENLARGEMENT POSSIBLE RIGHT VENTRICULAR CONDUCTION DELAY LEFT VENTRICULAR HYPERT ROPHY AND ST-T CHANGE ABNORMAL ECG Compared to PREVIOUS TRACING LVH and repolarization changes are new PREVIOUS TRACIN06/18/2008 12. 51 DOCTOR: Kaushik Flanagan Interpretating Date/Time 07/25/2017 14:42:52
--- NOTE | 2017-07-25 14:44 | EKG ---
Date Performed: 07/24/2017 Time Performed: 23:20:50 PTAGE: 71 years EKG: NORMAL Sinus rhythm Left atrial abnormality LVH with repolarization changes Since previous tracing, no significant barrow e noted BORDERLINE ECG PREVIOUS TRACING : 07/24/2017 20.42 DOCTOR: Kaushik Flanagan Interpretating Date/Time 07/25/2017 14:44:21
--- NOTE | 2017-07-25 14:46 | EKG ---
Date Performed: 07/25/2017 Time Performed: 02:35:47 PTAGE: 71 years EKG: SINUS BRADYCARDIA Left atrial abnormality LVH with repolarization abnormality The repolariz ation abnormality is slightly more prominent, cannot exclude ischemia ABNORMAL ECG PREVIOUS TRACING : 07/24/17 DOCTOR: Kaushik Flanagan Interpretating Date/Time 07/25/2017 14:45:59
--- NOTE | 2017-07-25 17:01 | MG ---
cc: Major Avery MD, PhD ELECTROENCEPHALOGRAM TEST NUMBER: [id number]. TECHNIQUE: 17-channel EEG. DESCRIPTION: The background rhythm reveals symmetrical alpha rhythm, frequency 8-10 Hz. Amplitude is 20-30 microvolts. There are no lateralizing features seen. There are no epileptiform discharges. Photic results in a normal driving response. INTERPRETATION: Normal electroencephalogram. Major Avery MD, PhD PILO/TOMMY , 04:50 PM , 05:00 PM
--- NOTE | 2017-07-25 17:02 | HHI.DCPOC ---
Discharge Care Plan Diagnosis: (1) Syncope Goals to Promote Your Health * To prevent worsening of your condition and complications * To maintain your health at the optimal level Directions to Meet Your Goals Take your medications as prescribed Follow your dietary instruction Follow activity as directed Keep your appointments as scheduled Take your immunizations and boosters as scheduled If your symptoms worsen call your PCP, if no PCP go to Urgent Care Center or Emergency Room Smoking is Dangerous to Your Health. Avoid second hand smoke Call the 24-hour hour crisis hotline for domestic abuse at Mo Zamarripa MD Jul 25, 2017 17:02
[2017-07-25] MEDS ORDERED: cloNIDine HCL 0.1 MG TAB PO ONE (18:45)
[2017-07-25] MEDS ORDERED: ENALAPRILAT 1.25 MG/ML VIAL IV PUSH ONE (20:00)
[2017-07-25] MEDS ORDERED: cefTRIAXone INJ 1,000 MG in SODIUM CHLORIDE 0.9% INJ 100 ML IV SCH (23:00)
--- NOTE | 2017-07-26 08:10 | MB ---
cc: Matt Crowe MD DATE: 07/25/2017 HISTORY OF PRESENT ILLNESS: Devora is a very pleasant 71-year-old lady with history of multiple sclerosis and tobacco use. She states she had an episode of loss of consciousness with no prodrome. She denies any chest pain, shortness of breath, fever, chills, cough, bleeding, PND, orthopnea. According to the ER note, she was in the sun while sitting and "passed out." There was no head injuries. The patient was already seated. She is noted to be noncompliant with blood pressure medications in the ER. PAST MEDICAL HISTORY: As per history of present illness. She has a history of hysterectomy. SOCIAL HISTORY: Denies alcohol use. She smokes a pack of cigarettes a day for the last 40 years. ALLERGIES: NONE. MEDICATIONS AT HOME: Aspirin 81 mg a day, interferon beta 1A, vitamin B12. MEDICATIONS IN THE HOSPITAL: Clonidine 0.1 mg x 1, ceftriaxone IV every .24 hours, Lovenox 60 subcutaneous every 12 hours, aspirin 81 mg a day. PHYSICAL EXAMINATION: VITAL SIGNS: Blood pressure 173/83, pulse 54, respiratory rate 18, temperature 97.8. GENERAL: She is alert and oriented x 3, in no acute distress. NECK: Supple. No JVD. No bruit. CARDIOVASCULAR: S1, S2. No murmurs, rubs or gallops. PULMONARY: Lungs clear to auscultation bilaterally. ABDOMEN: Soft, nontender, nondistended, with positive bowel sounds. EXTREMITIES: No extremity edema. LABORATORY DATA: White count 139, potassium 3.9, chloride 108, bicarbonate 23.2, BUN 20, creatinine 0.95. Troponin 0.07, 0.05 and 0.07. C-reactive protein 1.07. TSH is 6.390. INR 0.9. ECHOCARDIOGRAM: Normal sinus rhythm at 69 beats per minute. Anteroseptal Q-waves which are nondiagnostic and nonspecific. ST-T wave changes. Repeat EKG, normal sinus rhythm, 59 beats per minute, T-wave inversion in V4, V5, V6, lead II, III, AVF. EKG, normal sinus rhythm at 66 beats per minute, LVH with strain versus anterolateral ischemia, anteroseptal Q-waves. Corrected QT interval is 416 milliseconds. ECHOCARDIOGRAM: EF 60-65%, trace MR. Normal wall thickness and normal LV size. ELECTROENCEPHALOGRAM: Normal electroencephalogram. IMAGING: Chest x-ray, suspected minimal linear scarring or atelectasis of the left base. Carotid ultrasound, mild atherosclerotic plaquing bilaterally. Neck MRA. No evidence of hemodynamically significant stenosis or significant atherosclerotic vascular disease. Dominant left vertebral artery. 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 No evidence of vasculopathy, stenosis, aneurysm or vascular malformation. Dominant left vertebral artery. A brain MRI, bilateral cortical atrophy and chronic white matter changes. SHE HAS THE FOLLOWING DIAGNOSES: 1. [id number] myocardial infarction. 2. Syncope. 3. Hypertension. 4. Medical noncompliance. 5. Bradycardia. 6. Tobacco use. 7. Multiple sclerosis. 8. Left ventricular hypertrophy. ASSESSMENT: The patient has been seen by Dr. Hernandez, who assessed the syncope is probably not neurologic in origin. Due to the elevated troponin and risk factors of tobacco use, uncontrolled blood pressure and EKG changes, I have advised the patient to have a left heart catheterization. She adamantly refuses. She is otherwise asymptomatic. I think her bradycardia was induced by the clonidine, as she did not have this on presentation. Thyroid is normal. I do think from a cardiovascular standpoint, it is reasonable to let her go home and instructed her and Dr. Zamarripa to have her see me in the office immediately on 07/29/2017. Strongly recommend smoking cessation. Recommend compliance with blood pressure medications. MD KELY Singer/SHAWN , 06:50 PM , 07:25 PM
[2017-07-26 14:30] LABS: ANA SCREEN NEG (NEG)
[2017-07-29 05:48] LABS: METHYLMALONIC ACID 0.12 nmol/mL (<=0.40)
== END 2017-07-25 19:59 | disposition left against medical advice (07) | DRG 312 ==
LOC: NEPE 20:29 → NEDA 23:24 → NEDH 07-25 03:48 → N07A 07-25 04:30
PROVIDERS: ADMIT Hospitalist; ATTEND Hospitalist
DX: R55 Syncope and collapse (principal); G35 Multiple sclerosis; N39.0 Urinary tract infection, site not specified; I10 Essential (primary) hypertension; R00.1 Bradycardia, unspecified; R74.8 Abnormal levels of other serum enzymes; Z91.14 Patient's other noncompliance with medication regimen; F17.210 Nicotine dependence, cigarettes, uncomplicated; Z79.82 Long term (current) use of aspirin
CPT/HCPCS: 70544; 70548; 70553; 71045; 80048; 81001; 82550; 82607; 83921; 84425; 84439; 84443; 84450; 84460; 84484; 85025; 85610; 85652; 85730; 86038; 86140; 86592; 87077; 87086; 87186; 93005; 93306; 93880; 95819; 96365; 96375; A9579; J0696; J1650; J7030

== ENCOUNTER 2017-08-15 14:13 | Day surgery (SDC) | payer MEDICARE, BC ==
[~2017-08-15 14:13] MED LIST changes: -ALL220TA PO; +ASPI81CH6 CHEW; -CEFP250S PO; -METO25 PO; -OXYC1SOL6 PO; +REBI44IN SQ; +VITA100021 SL; -[UNRECOGNIZED DRUG - CODE] IM; +[UNRECOGNIZED DRUG - OTHER]
[2017-08-15] MEDS ORDERED: MUPIROCIN 2% OINT 1 APPLIC/GM SYR NASAL SCH (14:45)
[2017-08-15] MEDS ORDERED: CHLORHEXIDINE GLUCONATE 2 % 1 PACK (2 CLOTHS) TOPICAL SCH (14:45)
[2017-08-15] MEDS ORDERED: Hold AM Insulin & AM Hypoglycemic medications in diabetic patients PRN (14:45)
[2017-08-15] MEDS ORDERED: ceFAZolin 2 GM PREMIX 50 ML IV SCH (14:45)
[2017-08-15] MEDS ORDERED: NO Heparin, Lovenox, Coumadin at least 12 hours prior to procedure. PRN (14:45)
[2017-08-15] MEDS ORDERED: POVIDONE IODINE 5% (ANTISEPSIS KIT) 4 APPLICATIONS EACH NARE SCH (14:45)
[2017-08-15] MEDS ORDERED: NS 1000 ML IV SCH (14:45)
[2017-08-15] MEDS ORDERED: AMLO2.5T PO (14:58)
[2017-08-15] MEDS ORDERED: LIDOCAINE HCL 1% PF 30 ML VIAL ONE (16:08)
--- NOTE | 2017-08-15 16:55 | MA ---
cc: Russell Tierney MD DATE: 08/15/2017 DATE OF PROCEDURE: 08/15/2017 PROCEDURE PERFORMED: Loop recorder insertion. INDICATION FOR PROCEDURE: Syncope. DESCRIPTION OF PROCEDURE: The patient was brought to the DOC Unit in the postabsorptive state. After informed consent was obtained, a [employer] LINQ loop recorder was inserted subcutaneously to the left chest. The patient tolerated the procedure well without any apparent complications. Tachybrady pause and atrial fibrillation detection was enabled. The initial R-wave was 0.51 millivolts. The serial number was [id number]. MD ETIENNE Barrera/VIVIANA , 04:32 PM , 04:54 PM
== END 2017-08-15 17:12 | disposition home or self-care (01) ==
LOC: HDOC 14:13 → HDIC 14:15 → HDOC 17:12
PROVIDERS: ATTEND Nuclear Medicine Nuclear Cardiology
DX: R55 Syncope and collapse (principal); I10 Essential (primary) hypertension
CPT/HCPCS: 33282; C1764; J7030